=== PATIENT | male | born 1990 | race American Indian/Alaskan Native ===

== ENCOUNTER 2020-04-12 15:30 | Emergency (ER) | payer OTHER ==
--- NOTE | 2020-04-12 15:55 | Emergency Department Report ---
Blank Doc - Documentation Documentation: 29-year-old male that presents with chest pain and SOB. This initial assessment/diagnostic orders/clinical plan/treatment(s) is/are subject to change based on patient's health status, clinical progression and re- assessment by fellow clinical providers in the ED. Further treatment and workup at subsequent clinical providers discretion. Patient/guardians urged not to elope from the ED as their condition may be serious if not clinically assessed and managed. Initial orders include: 1- Patient sent to [facility] for further evaluation and treatment 2- EKG/CXR
--- NOTE | 2020-04-12 16:25 | XRay Report ---
CHEST 2 VIEWS INDICATION / CLINICAL INFORMATION: Chest Pain. COMPARISON: None available. FINDINGS: SUPPORT DEVICES: None. HEART / MEDIASTINUM: No significant abnormality. LUNGS / PLEURA: No significant pulmonary or pleural abnormality. No pneumothorax. ADDITIONAL FINDINGS: No significant additional findings. IMPRESSION: 1. No acute abnormality of the chest. Signer Name: Nikko Howard MD Signed: 04/12/2020 4:20 PM Workstation Name: [id number]
[2020-04-12 17:14] LABS: Basophils % (Auto) 0.3 % (0.0-1.8); Eosinophils # (Auto) 0.1 K/mm3 (0.0-0.4); Eosinophils % (Auto) 1.7 % (0.0-4.3); Hematocrit 43.5 % (35.5-45.6); Hemoglobin 14.5 gm/dl (11.8-15.2); Lymphocytes # (Auto) 2.2 K/mm3 (1.2-5.4); Lymphocytes % (Auto) 28.7 % (13.4-35.0); Mean Corpuscular HGB Conc 33 % (32-34); Mean Corpuscular Volume 91 fl (84-94); Monocytes # (Auto) 0.6 K/mm3 (0.0-0.8); Monocytes % (Auto) 8.1 % (0.0-7.3); Platelet Count 229 K/mm3 (140-440); Red Blood Count 4.78 M/mm3 (3.65-5.03); Red Cell Distribution Width 12.9 % (13.2-15.2)
[2020-04-12 17:38] LABS: Alanine Aminotransferase 22 units/L (7-56); Albumin 4.1 g/dL (3.9-5); BUN/Creatinine Ratio 14; Blood Urea Nitrogen 14 mg/dL (9-20); Calcium 9.1 mg/dL (8.4-10.2); Hemolysis Index 9
[2020-04-12] MEDS ORDERED: IBUPROFEN 400 MG TAB PO ONE (18:03)
[2020-04-12] MEDS ORDERED: ACETAMINOPHEN 500 MG TAB PO ONE (18:03)
--- NOTE | 2020-04-12 18:03 | Emergency Department Report ---
ED General Adult HPI - General Chief complaint: Upper Respiratory Infection Stated complaint: CP/COUGHING UP BLOOD/HEADACHE/SOB Time Seen by Provider: 04/12/20 15:54 Source: patient Mode of arrival: Ambulatory Limitations: No Limitations - History of Present Illness Initial comments: Patient is a 29-year-old male no significant past medical history who presents with cough/mild hemoptysis and fatigue. Patient states that he has been having shortness of breath diarrhea and headache at the makes the symptoms better nothing makes it worse. Patient denies any sick contacts fever has been subjective. - Related Data Previous Rx's Medication Instructions Recorded Last Taken Type Albuterol Sulfate [Proventil Hfa] 6.7 gm IH Q6H PRN #1 hfa.aer.ad 04/12/20 Unknown Rx Amoxicillin/Potassium Clav 1 each PO Q6H #20 tablet 04/12/20 Unknown Rx [Augmentin 875-125 Tablet] predniSONE [Deltasone] 20 mg PO QDAY #5 tab 04/12/20 Unknown Rx Allergies Allergy/AdvReac Type Severity Reaction Status Date / Time No Known Allergies Allergy Unverified 04/12/20 15:56 ED Review of Systems ROS: Stated complaint: CP/COUGHING UP BLOOD/HEADACHE/SOB Other details as noted in HPI Constitutional: denies: chills, fever Eyes: denies: eye pain, eye discharge, vision change ENT: denies: ear pain, throat pain Respiratory: cough. denies: shortness of breath, wheezing Cardiovascular: denies: chest pain, palpitations Endocrine: no symptoms reported Gastrointestinal: nausea, diarrhea. denies: abdominal pain Genitourinary: denies: urgency, dysuria Musculoskeletal: denies: back pain, joint swelling, arthralgia Skin: denies: rash, lesions Neurological: headache. denies: weakness, paresthesias Psychiatric: denies: anxiety, depression Hematological/Lymphatic: denies: easy bleeding, easy bruising ED Past Medical Hx - Past Medical History Previous Medical History?: No - Surgical History Past Surgical History?: No - Medications Home Medications: Home Medications Medication Instructions Recorded Confirmed Last Taken Type Albuterol Sulfate [Proventil Hfa] 6.7 gm IH Q6H PRN #1 hfa.aer.ad 04/12/20 Unknown Rx Amoxicillin/Potassium Clav 1 each PO Q6H #20 tablet 04/12/20 Unknown Rx [Augmentin 875-125 Tablet] predniSONE [Deltasone] 20 mg PO QDAY #5 tab 04/12/20 Unknown Rx ED Physical Exam - General Limitations: No Limitations General appearance: alert, in no apparent distress - Head Head exam: Present: atraumatic, normocephalic - Eye Eye exam: Present: normal appearance - ENT ENT exam: Present: mucous membranes moist - Neck Neck exam: Present: normal inspection - Respiratory Respiratory exam: Present: normal lung sounds bilaterally. Absent: respiratory distress - Cardiovascular Cardiovascular Exam: Present: regular rate, normal rhythm. Absent: systolic murmur, diastolic murmur, rubs, gallop - GI/Abdominal GI/Abdominal exam: Present: soft, normal bowel sounds - Rectal Rectal exam: Present: deferred - Extremities Exam Extremities exam: Present: normal inspection - Back Exam Back exam: Present: normal inspection - Neurological Exam Neurological exam: Present: alert, oriented X3 - Psychiatric Psychiatric exam: Present: normal affect, normal mood - Skin Skin exam: Present: warm, dry, intact, normal color. Absent: rash ED Course Vital Signs 04/12/20 15:56 Temperature 98.3 F Pulse Rate 67 Respiratory 18 Rate Blood Pressure 121/71 [Right] O2 Sat by Pulse 96 Oximetry ED Medical Decision Making - Lab Data Result diagrams: 04/12/20 16:55 04/12/20 16:55 Lab Results 04/12/20 04/12/20 Range/Units 16:55 16:55 WBC 7.6 (4.5-11.0) K/mm3 RBC 4.78 (3.65-5.03) M/mm3 Hgb 14.5 (11.8-15.2) gm/dl Hct 43.5 (35.5-45.6) % MCV 91 (84-94) fl MCH 30 (28-32) pg MCHC 33 (32-34) % RDW 12.9 L (13.2-15.2) % Plt Count 229 (140-440) K/mm3 Lymph % (Auto) 28.7 (13.4-35.0) % [place] % (Auto) 8.1 H (0.0-7.3) % Eos % (Auto) 1.7 (0.0-4.3) % Baso % (Auto) 0.3 (0.0-1.8) % Lymph # 2.2 (1.2-5.4) K/mm3 [place] # 0.6 (0.0-0.8) K/mm3 Eos # 0.1 (0.0-0.4) K/mm3 Baso # 0.0 (0.0-0.1) K/mm3 Seg Neutrophils % 61.2 (40.0-70.0) % Seg Neutrophils # 4.6 (1.8-7.7) K/mm3 Sodium 141 (137-145) mmol/L Potassium 3.9 (3.6-5.0) mmol/L Chloride 102.6 (98-107) mmol/L Carbon Dioxide 24 (22-30) mmol/L Anion Gap 18 mmol/L BUN 14 (9-20) mg/dL Creatinine 1.0 (0.8-1.3) mg/dL Estimated GFR > 60 ml/min BUN/Creatinine Ratio 14 % Glucose 90 (75-100) mg/dL Calcium 9.1 (8.4-10.2) mg/dL Total Bilirubin 0.40 (0.1-1.2) mg/dL AST 18 (5-40) units/L ALT 22 (7-56) units/L Alkaline Phosphatase 76 (35-129) units/L Troponin T < 0.010 (0.00-0.029) ng/mL Total Protein 7.1 (6.3-8.2) g/dL Albumin 4.1 (3.9-5) g/dL Albumin/Globulin Ratio 1.4 % - EKG Data -: EKG Interpreted by Or - EKG Data 04/12/20 18:06 EKG time 1601 rate 56 slow sinus arrhythmia no ST segment elevation T wave inversion impression normal EKG - Radiology Data Radiology results: report reviewed, image reviewed Chest x-ray: Shows no acute cardiopulmonary disease - Medical Decision Making Chief medical diagnosis: Bronchitis Differential medical diagnosis: COVID-19,PNA, electrolyte abnormality, influenza All the EKG chest x-ray Tylenol Motrin blood work and I will reevaluate the patient. ED work-up is unremarkable I will discharge patient home patient agrees with plan additional verbal discharge instructions were given. Critical care attestation.: If time is entered above; I have spent that time in minutes in the direct care of this critically ill patient, excluding procedure time. ED Disposition Clinical Impression: Bronchitis, Tension headache, COVID-19 Disposition: DC-01 TO HOME OR SELFCARE Is pt being admited?: No Does the pt Need Aspirin: No Condition: Stable Instructions: Chronic Bronchitis (ED) Prescriptions: Amoxicillin/Potassium Clav [Augmentin 875-125 Tablet] 1 each PO Q6H #20 tablet predniSONE [Deltasone] 20 mg PO QDAY #5 tab Albuterol Sulfate [Proventil Hfa] 6.7 gm IH Q6H PRN #1 hfa.aer.ad PRN Reason: Shortness Of Breath Referrals: PRIMARY CAREMD [Primary Care Provider] - 3-5 Days DELBERT LYNN MD [Staff Physician] - 3-5 Days
[2020-04-12 18:59] VITALS: BP 130/90
== END 2020-04-12 18:33 | disposition home or self-care (01) ==
LOC: ED 15:30
DX: U07.1 COVID-19 (principal); J20.9 Acute bronchitis, unspecified; G44.209 Tension-type headache, unspecified, not intractable
CPT/HCPCS: 36415; 71046; 80053; 84484; 85025; 93005

== ENCOUNTER 2020-06-20 19:02 | Emergency (ER) | payer OTHER ==
[2020-06-20 19:08] VITALS: BP 136/78
[2020-06-20] MEDS ORDERED: DIPHtheria,PERTUSSIS(ACELL),TETANUS VACCINE/PF 0.5 ML VIAL IM ONE (19:12)
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
== END 2020-06-20 20:21 | disposition home or self-care (01) ==
LOC: ED 19:02
DX: L03.115 Cellulitis of right lower limb (principal); Z98.890 Other specified postprocedural states; Z79.899 Other long term (current) drug therapy
CPT/HCPCS: 90471; 90715; 99281

== ENCOUNTER 2020-09-25 21:46 | Emergency (ER) | payer OTHER ==
--- NOTE | 2020-09-25 22:31 | XRay Report ---
CHEST PA AND LATERAL VIEWS INDICATION: Chest Pain. COMPARISON: 04/12/2020 FINDINGS: Support devices: None. Heart: Within normal limits. Lungs/Pleura: No acute pulmonary or pleural findings. IMPRESSION: 1. No acute findings. Signer Name: Dennis Santacruz MD Signed: 09/25/2020 10:27 PM Workstation Name: [id number]
[2020-09-25 22:43] LABS: Basophils % (Auto) 0.3 % (0.0-1.8); Eosinophils # (Auto) 0.1 K/mm3 (0.0-0.4); Eosinophils % (Auto) 1.4 % (0.0-4.3); Hematocrit 45.1 % (35.5-45.6); Hemoglobin 15.3 gm/dl (11.8-15.2); Lymphocytes # (Auto) 2.7 K/mm3 (1.2-5.4); Lymphocytes % (Auto) 28.5 % (13.4-35.0); Mean Corpuscular HGB Conc 34 % (32-34); Mean Corpuscular Volume 91 fl (84-94); Monocytes # (Auto) 0.7 K/mm3 (0.0-0.8); Monocytes % (Auto) 7.9 % (0.0-7.3); Platelet Count 274 K/mm3 (140-440); Red Blood Count 4.96 M/mm3 (3.65-5.03); Red Cell Distribution Width 13.2 % (13.2-15.2)
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
[2020-09-25 23:07] LABS: Alanine Aminotransferase 13 units/L (7-56); BUN/Creatinine Ratio 13; Blood Urea Nitrogen 12 mg/dL (9-20); Calcium 8.7 mg/dL (8.4-10.2); Hemolysis Index 12
[2020-09-25 23:56] VITALS: BP 116/84
== END 2020-09-25 23:56 | disposition home or self-care (01) ==
LOC: ED 21:46
DX: K21.9 Gastro-esophageal reflux disease without esophagitis (principal); K43.9 Ventral hernia without obstruction or gangrene; R07.89 Other chest pain; F17.200 Nicotine dependence, unspecified, uncomplicated; Z79.899 Other long term (current) drug therapy; Z98.890 Other specified postprocedural states
CPT/HCPCS: 36415; 71046; 80053; 84484; 85025; 93005

== ENCOUNTER 2020-10-26 00:21 | Emergency (ER) | payer BC ==
[2020-10-26] MEDS ORDERED: ACETAMINOPHEN 500 MG TAB PO ONE (00:44)
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
[2020-10-26 02:10] LABS: Basophils % (Auto) 0.4 % (0.0-1.8); Eosinophils # (Auto) 0.2 K/mm3 (0.0-0.4); Eosinophils % (Auto) 1.7 % (0.0-4.3); Hematocrit 43.6 % (35.5-45.6); Lymphocytes # (Auto) 3.1 K/mm3 (1.2-5.4); Mean Corpuscular HGB Conc 34 % (32-34); Mean Corpuscular Volume 91 fl (84-94); Monocytes # (Auto) 0.9 K/mm3 (0.0-0.8); Monocytes % (Auto) 9.2 % (0.0-7.3); Platelet Count 253 K/mm3 (140-440); Red Blood Count 4.82 M/mm3 (3.65-5.03); Red Cell Distribution Width 12.8 % (13.2-15.2)
[2020-10-26 02:27] LABS: Alanine Aminotransferase 12 units/L (7-56); Albumin 4.2 g/dL (3.9-5); BUN/Creatinine Ratio 14; Blood Urea Nitrogen 13 mg/dL (9-20); Calcium 9.1 mg/dL (8.4-10.2); Hemolysis Index 6
[2020-10-26 03:06] VITALS: BP 107/69
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
--- NOTE | 2020-10-29 10:21 | Electrocardiograph Report ---
[facility] Test Date: 2020-10-26 Test Time: 02:13:30 Pat Name: AMISH LINARES Department: Room: Gender: M Estimate Clerk: ELI : 1990 Requested By: SHRAVAN ARNETT Order Number: [id number] Reading MD: Jhonathan Chris Measurements Intervals Anita Rate: 52 P: 44 MD: 201 QRS: 37 QRSD: 83 T: 7 QT: 419 QTc: 389 Interpretive Statements Sinus bradycardia No previous ECG available for comparison Electronically Signed On 10-29-2020 10:21:17 EDT by Jhonathan Chris
== END 2020-10-26 03:39 | disposition home or self-care (01) ==
LOC: ED 00:21
DX: R51.9 Headache, unspecified (principal); F17.200 Nicotine dependence, unspecified, uncomplicated; Z98.890 Other specified postprocedural states; Z79.2 Long term (current) use of antibiotics; Z79.899 Other long term (current) drug therapy; W86.8XXA Exposure to other electric current, initial encounter; Y93.89 Activity, other specified; Y92.89 Other specified places as the place of occurrence of the external cause; Y99.8 Other external cause status
CPT/HCPCS: 36415; 70450; 80053; 84484; 85025; 93005